=== PATIENT | female | born 1995 | race Hispanic/Latino ===

== ENCOUNTER 2024-09-26 08:41 | Outpatient (CLI) | payer OTHER | END 2024-09-26 08:42 | disposition home or self-care (01) | LOC: BICRAD 08:41 | PROVIDERS: ATTEND Family Medicine | DX: M54.50 Low back pain, unspecified (principal); M79.604 Pain in right leg; M25.561 Pain in right knee; M47.816 Spondylosis without myelopathy or radiculopathy, lumbar region; Z98.890 Other specified postprocedural states; Z87.81 Personal history of (healed) traumatic fracture | CPT/HCPCS: 72100 ==